=== PATIENT | female | born 1960 | race Hispanic/Latino ===

== ENCOUNTER 2024-07-15 22:53 | Emergency (ER) | payer MEDICARE ==
[~2024-07-15] VITALS: Ht 152.4 cm; Wt 63.5 kg
[2024-07-15 23:08] VITALS: TEMP 99.1
[2024-07-16] MEDS: IBUPROFEN 600 MG TAB PO STA (00:37)
[2024-07-16 01:22] VITALS: PULSE 57; RESP 16; O2SAT 100
== END 2024-07-16 01:24 | disposition home or self-care (01) ==
LOC: ER 23:29
DX: S20.211A Contusion of right front wall of thorax, initial encounter (principal); R50.9 Fever, unspecified; V47.6XXA Car passenger injured in collision with fixed or stationary object in traffic accident, initial encounter; Y92.488 Other paved roadways as the place of occurrence of the external cause; I10 Essential (primary) hypertension; F32.A Depression, unspecified; G47.00 Insomnia, unspecified
CPT/HCPCS: 71101; 99283